=== PATIENT | male | born 1995 | race Caucasian/White ===

== ENCOUNTER → 2017-11-21 16:41 | Outpatient (CLI) | payer OTHER, SELFPAY ==
[2017-11-25 11:08] LABS: EBV Acute VCA IgM > 160.0 U/mL (0.0-35.9); EBV Nuclear Antigen IgG < 18.0 U/mL (0.0-17.9); EBV-VCA IgG 77.2 U/mL (0.0-17.9)
== END ==
PROVIDERS: Visit Provider Otolaryngology
DX: J03.90 Acute tonsillitis, unspecified (principal)
CPT/HCPCS: 36415; 86663; 86664; 86665; 87070

== ENCOUNTER 2018-04-17 13:37 | Emergency (ER) | payer OTHER, SELFPAY ==
[2018-04-17 13:38] VITALS: BP 108/71; PULSE 94; RESP 18; TEMP 36.6; O2SAT 99; BMI 27.6
--- NOTE | 2018-04-17 13:48 | RAD_ITS ---
STUDY: X-RAY - RIGHT ANKLE REASON FOR EXAM: Male, 23 years old. Pain following injury. TECHNIQUE: 3 view(s) of the ankle. COMPARISON: None. FINDINGS: Normal visualized distal tibia and fibula. Normal medial and lateral malleoli. Normal tibiotalar articulation and ankle mortise. Normal visualized talus and calcaneus. The visualized subtalar, talonavicular, calcaneocuboid and tarsal articulations are normal. The soft tissue structures are unremarkable. RAD/Ankle min 3 Views IMPRESSION: Normal x-ray examination of the ankle. Electronically Signed: Christian Juarez MD at 14:34 EDT Tel [phone], Service support ,
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
--- NOTE | 2018-04-17 14:44 | ED.DEP ---
ED Disposition - Plan for ED Patient: Chief Complaint: Lower Extremity Injury Instructions: ED Sprain Ankle W X Ray Prescriptions: Hydrocodone Bitart/Apap 5-325 [[place] 5MG-325MG] 1 tab PO Q4H PRN PRN 2 Days #10 tab PRN Reason: Pain Naproxen [Naprosyn] 500 mg PO BID PRN #20 tab Referrals: Care Physician,No Primary [Primary Care Provider] - Ag Rizvi DO [STAFF PHYSICIAN] - 5-7 Days
== END 2018-04-17 15:02 | disposition home or self-care (01) ==
PROVIDERS: Emergency Provider Emergency Medicine
DX: S93.401A Sprain of unspecified ligament of right ankle, initial encounter (principal); W20.8XXA Other cause of strike by thrown, projected or falling object, initial encounter; Y93.9 Activity, unspecified; Y92.008 Other place in unspecified non-institutional (private) residence as the place of occurrence of the external cause; Y99.9 Unspecified external cause status
CPT/HCPCS: 73610; 99283